=== PATIENT | male | born 1965 | race Two or more races ===

== ENCOUNTER → 2021-04-30 | Outpatient (CLI) | payer OTHER ==
--- NOTE | 2021-04-30 12:45 | KCIC ---
EXAM: CHEST ONE VIEW. HISTORY: Positive PPD. COMPARISON: None. FINDINGS: A frontal view of the chest is obtained. There are cavitary lesions in both upper lobes measuring 4.3 x 3.9 cm on the right and 5.3 x 4.7 cm o n the left. There are surrounding interstitial infiltrates with mild architectural distortion. There are milder infiltrates in the left base. There is no pneumothorax or pleural effusion. The heart is not enlarged. IMPRESSION: 1. Cavitary lesions in both upper lobes are consistent with active mycobacterial disease. These findings were called to Anabela Dillon by Elvin Pineda on 04/30/2021 at 12:42 PM. Electronically signed by: Ashanti Pineda MD (04/30/2021 12:42 PM) [id number]
== END ==
LOC: KCIC 11:30
PROVIDERS: ATTEND Internal Medicine Pulmonary Disease
DX: J98.4 Other disorders of lung (principal); R91.8 Other nonspecific abnormal finding of lung field; R76.11 Nonspecific reaction to tuberculin skin test without active tuberculosis
CPT/HCPCS: 71045